=== PATIENT | female | born 1955 | race Caucasian/White ===

== ENCOUNTER 2019-02-07 21:42 | Inpatient (IN) | payer MEDICAID ==
[~2019-02-07] VITALS: Ht 157.5 cm; Wt 88.1 kg
[~2019-02-07 21:42] MED LIST: AMLO5TAB4 PO; ATOR20TA PO; BENA40TA9 PO; CARV25TA47 PO; OMEP20TA2 PO
[2019-02-07] MEDS ORDERED: MAGNESIUM/ALUMINUM HYDROXIDE/SIMETHICONE 30ML UDC PO STA (22:41)
[2019-02-07] MEDS ORDERED: ONDANSETRON HCL 4MG/2ML INJ IV STA (22:41)
[2019-02-07 23:42] LABS: BASOPHILS % 0.9 % (0.0-2.0); EOSINOPHILS % 2.6 % (0.0-5.0); HEMATOCRIT. 35.6 % (36.0-48.0); HEMOGLOBIN. 12.3 g/dL (12.0-16.0); LYMPHOCYTES % 24.8 % (20.0-50.0); MEAN CORPUSCULAR HEMOGLOBIN 27.9 pg (28.0-32.0); MEAN CORPUSCULAR VOLUME 80.7 fL (81.0-99.0); MEAN PLATELET VOLUME 7.4 fl (7.4-10.4); MONOCYTES % 4.1 % (2.0-8.0); NEUTROPHILS % 67.6 % (40.0-76.0); PLATELET 344 x1000/uL (130-400); RED BLOOD CELL COUNT 4.41 mill/uL (4.2-5.4); RED CELL DISTRIBUTION WIDTH 14.1 % (11.6-14.6)
[2019-02-07 23:50] LABS: CHLORIDE 95 mEq/L (98-107)
[2019-02-08] MEDS ORDERED: IOHEXOL-300 100 ML BOTTLE ONE (03:23)
[2019-02-08 05:28] LABS: CLARITY URINE CLEAR (CLEAR); KETONES URINE NEGATIVE (NEGATIVE); LEUKOCYTE ESTERASE URINE NEGATIVE (NEGATIVE); NITRITE URINE NEGATIVE (NEGATIVE); OCCULT BLOOD URINE NEGATIVE (NEGATIVE); PH URINE 6.5 (4.5-8.0); PROTEIN URINE NEGATIVE (NEGATIVE); SPECIFIC GRAVITY URINE 1.003 (1.005-1.030); UROBILINOGEN URINE 0.2 E.U./dL (0.2-1.0)
[2019-02-08 05:29] LABS: COLOR URINE STRAW (YELLOW)
[2019-02-08 06:11] VITALS: BP 145/82
[2019-02-08] MEDS ORDERED: COR25 MT (07:04)
[2019-02-08] MEDS ORDERED: AMLO10TA80 PO (07:04)
[2019-02-08] MEDS ORDERED: OMEP40CA34 MT (07:04)
[2019-02-08] MEDS ORDERED: BENA40TA9 MT (07:04)
[2019-02-08] MEDS: OMEPRAZOLE 20MG CAPSULE EXTENDED RELEASE PO SCH ×2 (07:20→10:31)
[2019-02-08 08:00] VITALS: BP_SYST 128; BP_DIAS 77; BP_DIAS 79
[2019-02-08] MEDS ORDERED: MEDICATION NOT ON FORMULARY EA (Benazepril Hcl 40 MG) PO SCH (09:00)
[2019-02-08] MEDS ORDERED: MEDICATION NOT ON FORMULARY EA (Carvedilol 25 MG) PO SCH (09:00)
[2019-02-08] MEDS: CARVEDILOL 12.5MG TABLET PO SCH ×3 (09:00→21:55)
[2019-02-08] MEDS: AMLODIPINE 10MG TABLET PO SCH ×2 (09:00→10:31)
[2019-02-08] MEDS: BENAZEPRIL 10MG TABLET PO SCH ×2 (09:00→10:29)
[2019-02-08] MEDS ORDERED: PNEUMOCOCCAL 23-VAL P-SAC VAC 0.5 ML IM ONE (09:00)
[2019-02-08] MEDS ORDERED: MEDICATION NOT ON FORMULARY EA (Omeprazole 1 CAP) MT SCH (09:00)
[2019-02-08] MEDS ORDERED: MORPHINE SULFATE 2 MG/ML CPJ (NOT FOR IM USE) IV PRN (10:00)
[2019-02-08 12:00] VITALS: BP 107/73
[2019-02-08] MEDS ORDERED: MORPHINE SULFATE 2 MG/ML CPJ (NOT FOR IM USE) IV NR (12:30)
[2019-02-08] MEDS ORDERED: ONDANSETRON HCL 4MG/2ML INJ IV PRN (12:30)
[2019-02-08 14:35] LABS: *AMPHETAMINES SCREEN URINE NEGATIVE (NEGATIVE); *BARBITURATES SCREEN URINE NEGATIVE (NEGATIVE); *BENZODIAZEPINES SCREEN URINE NEGATIVE (NEGATIVE); *COCAINE SCREEN URINE NEGATIVE (NEGATIVE)
[2019-02-08 14:36] LABS: CANNABINOID URINE SCREEN NEGATIVE (NEGATIVE); METHADONE URINE SCREEN NEGATIVE (NEGATIVE); OPIATES URINE SCREEN NEGATIVE (NEGATIVE); PHENCYCLIDINE URINE SCREEN NEGATIVE (NEGATIVE)
[2019-02-08 16:00] VITALS: BP 116/76
[2019-02-08 20:00] VITALS: BP 121/67
[2019-02-09] VITALS: BP 114/64
[2019-02-09 04:00] VITALS: BP 122/71
[2019-02-09] MEDS: OMEPRAZOLE 20MG CAPSULE EXTENDED RELEASE PO SCH (06:35)
[2019-02-09 07:03] LABS: CHLORIDE 103 mEq/L (98-107)
[2019-02-09 07:25] LABS: BASOPHILS % 0.7 % (0.0-2.0); EOSINOPHILS % 3.2 % (0.0-5.0); HEMATOCRIT. 34.4 % (36.0-48.0); HEMOGLOBIN. 11.5 g/dL (12.0-16.0); LYMPHOCYTES % 27.8 % (20.0-50.0); MEAN CORPUSCULAR HEMOGLOBIN 27.7 pg (28.0-32.0); MEAN CORPUSCULAR VOLUME 82.7 fL (81.0-99.0); MEAN PLATELET VOLUME 8.1 fl (7.4-10.4); MONOCYTES % 5.9 % (2.0-8.0); NEUTROPHILS % 62.4 % (40.0-76.0); PLATELET 332 x1000/uL (130-400); RED BLOOD CELL COUNT 4.15 mill/uL (4.2-5.4); RED CELL DISTRIBUTION WIDTH 14.3 % (11.6-14.6)
[2019-02-09 08:00] VITALS: BP 115/65
[2019-02-09] MEDS: AMLODIPINE 10MG TABLET PO SCH (08:46)
[2019-02-09] MEDS: CARVEDILOL 12.5MG TABLET PO SCH (08:48)
[2019-02-09 12:00] VITALS: BP 127/69
[2019-02-09 14:18] VITALS: BP 127/69
== END 2019-02-09 16:00 | disposition home or self-care (01) | DRG 254 ==
LOC: ER 21:47 → 6WST 02-08 02:30 → EDBEDREQ 02-08 02:34 → EDBEDREQTM 02-08 02:34 → ENRESERV 02-08 02:42
PROVIDERS: ADMIT Internal Medicine; ATTEND Internal Medicine
DX: K44.9 Diaphragmatic hernia without obstruction or gangrene (principal); E87.1 Hypo-osmolality and hyponatremia; E87.8 Other disorders of electrolyte and fluid balance, not elsewhere classified; K21.9 Gastro-esophageal reflux disease without esophagitis; E66.9 Obesity, unspecified; E78.00 Pure hypercholesterolemia, unspecified; I10 Essential (primary) hypertension; J45.909 Unspecified asthma, uncomplicated; K57.30 Diverticulosis of large intestine without perforation or abscess without bleeding; Z90.49 Acquired absence of other specified parts of digestive tract; Z71.3 Dietary counseling and surveillance; Z68.35 Body mass index [BMI] 35.0-35.9, adult
CPT/HCPCS: 36415; 71045; 74177; 74181; 76700; 80048; 80305; 81003; 84484; 90732; 93005; 93306; 96374; 96375; 99285; J2270; J2405; Q9967

== ENCOUNTER 2023-09-06 11:13 | Inpatient (IN) | payer OTHER, MEDICAID ==
[~2023-09-06] VITALS: Ht 162.6 cm; Wt 87.2 kg
[~2023-09-06 11:13] MED LIST changes: +AMLO10TA80 PO; -AMLO5TAB4 PO; -ATOR20TA PO; -BENA40TA9 PO; +BENA40TA91 PO; -OMEP20TA2 PO; +OMEP40CA20 MT
[2023-09-06 13:04] LABS: BASOPHILS % 0.6 % (0.0-2.0); EOSINOPHILS % 1.9 % (0.0-5.0); HEMATOCRIT. 36.3 % (36.0-48.0); HEMOGLOBIN. 12.7 g/dL (12.0-16.0); LYMPHOCYTES % 22.4 % (20.0-50.0); MEAN CORPUSCULAR HEMOGLOBIN 29.9 pg (28.0-32.0); MEAN CORPUSCULAR HGB CONC 35.1 g/dL (31.0-37.0); MEAN CORPUSCULAR VOLUME 85.3 fL (81.0-99.0); MEAN PLATELET VOLUME 7.2 fl (7.4-10.4); MONOCYTES % 7.2 % (2.0-8.0); NEUTROPHILS % 67.9 % (40.0-76.0); PLATELET 340 x1000/uL (130-400); RED BLOOD CELL COUNT 4.25 mill/uL (4.2-5.4); RED CELL DISTRIBUTION WIDTH 13.6 % (11.6-14.6); WHITE BLOOD COUNT 7.4 x1000/uL (4.5-11.0)
[2023-09-06 13:05] LABS: ALANINE AMINOTRANSFERASE 64 IU/L (10-49); ALBUMIN 4.5 g/dL (3.2-4.8); ASPARTATE AMINOTRANSFERASE 38 IU/L (<34); BILIRUBIN TOTAL 0.6 mg/dL (0.1-1.0); CALCIUM 8.9 mg/dL (8.7-10.4); CARBON DIOXIDE 27 mEq/L (21-32); CHLORIDE 93 mEq/L (98-107); CREATININE 0.6 mg/dL (0.6-1.0); GLUCOSE 131 mg/dL (70-105); POTASSIUM 3.5 mEq/L (3.5-5.1); PROTEIN TOTAL 6.7 g/dL (6.0-8.3); SODIUM 126 mEq/L (136-145); TROPONIN I HIGH SENSITIVITY 5 ng/L (3.0-34); UREA NITROGEN BLOOD 5 mg/dL (9-23)
[2023-09-06] MEDS: HYDRALAZINE 20MG/ML VIAL IV ONE (13:38)
[2023-09-06] MEDS: SODIUM CHLORIDE 0.9% 1,000 ML IV ONE (13:38)
[2023-09-06] MEDS ORDERED: ACETAMINOPHEN 325MG TABLET PO PRN (16:45)
[2023-09-06] MEDS ORDERED: AMLODIPINE 10MG TABLET PO SCH (16:45)
[2023-09-06] MEDS ORDERED: DOCUSATE SODIUM 100MG CAPSULE PO PRN (16:45)
[2023-09-06] MEDS ORDERED: CLONIDINE 0.1MG TABLET PO PRN (16:45)
[2023-09-06] MEDS ORDERED: ONDANSETRON HCL 4MG/2ML INJ IV PRN (16:45)
[2023-09-06] MEDS ORDERED: IPRATROPIUM/ALBUTEROL 0.5-3(2.5)MG/3ML NEB HHN PRN (16:45)
[2023-09-06] MEDS: LOSARTAN 50 MG TABLET PO SCH (19:53)
[2023-09-06] MEDS: ASPIRIN 81MG EC TABLET PO NR (19:54)
[2023-09-06] MEDS: AMLODIPINE 5MG TABLET PO SCH (19:54)
[2023-09-06 20:00] VITALS: BP 165/91; PULSE 85; RESP 24; TEMP 97.8
[2023-09-06 21:13] VITALS: BP 156/79; PULSE 74; RESP 14; TEMP 97.8
[2023-09-06] MEDS: ATORVASTATIN CALCIUM 20MG TABLET PO SCH (21:27)
[2023-09-06] MEDS: ENOXAPARIN 30MG/0.3ML SYR SUBCUT SCH (21:28)
[2023-09-06 23:04] LABS: HEPATITIS B SURFACE ANTIGEN NEGATIVE (Negative); HEPATITIS C AB NON REACTIVE (Neg) (Negative)
[2023-09-07] VITALS: BP 121/70; PULSE 77; RESP 14; TEMP 97.5
[2023-09-07 00:12] LABS: CREATINE KINASE MB FRACTION 0.6 ng/mL (0.5-3.6)
[2023-09-07] MEDS: ZOLPIDEM TARTRATE 5MG TABLET PO PRN (00:39)
[2023-09-07 04:00] VITALS: BP 130/80; PULSE 70; RESP 15; TEMP 97.6
[2023-09-07 05:30] LABS: SODIUM URINE RANDOM 122 mEq/L
[2023-09-07 05:38] LABS: *AMPHETAMINES SCREEN URINE NEGATIVE (NEGATIVE); *BARBITURATES SCREEN URINE NEGATIVE (NEGATIVE); *BENZODIAZEPINES SCREEN URINE NEGATIVE (NEGATIVE); *COCAINE SCREEN URINE NEGATIVE (NEGATIVE); CANNABINOID URINE SCREEN NEGATIVE (NEGATIVE); ECSTASY MDMA SCREEN URINE NEGATIVE (NEGATIVE); METHADONE URINE SCREEN Neg (NEGATIVE); OPIATES URINE SCREEN NEGATIVE (NEGATIVE); PHENCYCLIDINE URINE SCREEN NEGATIVE (NEGATIVE)
[2023-09-07 06:12] LABS: CREATINE KINASE 43 IU/L (34-145); CREATINE KINASE MB FRACTION < 0.5 ng/mL (0.5-3.6); TROPONIN I HIGH SENSITIVITY 7 ng/L (3.0-34)
[2023-09-07 08:00] VITALS: BP 109/83; PULSE 84; RESP 17; TEMP 98.1
[2023-09-07] MEDS ORDERED: SODIUM CHLORIDE 0.9% 1,000 ML IV SCH (08:00)
[2023-09-07 08:18] LABS: ALANINE AMINOTRANSFERASE 66 IU/L (10-49); ALBUMIN 4.4 g/dL (3.2-4.8); ASPARTATE AMINOTRANSFERASE 39 IU/L (<34); BILIRUBIN TOTAL 0.5 mg/dL (0.1-1.0); CALCIUM 9.2 mg/dL (8.7-10.4); CARBON DIOXIDE 22 mEq/L (21-32); CHLORIDE 101 mEq/L (98-107); CREATININE 0.6 mg/dL (0.6-1.0); GLUCOSE 109 mg/dL (70-105); POTASSIUM 3.2 mEq/L (3.5-5.1); PROTEIN TOTAL 7.1 g/dL (6.0-8.3); UREA NITROGEN BLOOD 6 mg/dL (9-23)
[2023-09-07 08:23] LABS: SODIUM 134 mEq/L (136-145)
[2023-09-07 08:25] LABS: BASOPHILS % 1.2 % (0.0-2.0); EOSINOPHILS % 3.1 % (0.0-5.0); HEMATOCRIT. 37.6 % (36.0-48.0); LYMPHOCYTES % 32.2 % (20.0-50.0); MEAN CORPUSCULAR HEMOGLOBIN 29.9 pg (28.0-32.0); MEAN CORPUSCULAR HGB CONC 34.6 g/dL (31.0-37.0); MEAN CORPUSCULAR VOLUME 86.6 fL (81.0-99.0); MEAN PLATELET VOLUME 7.7 fl (7.4-10.4); MONOCYTES % 8.7 % (2.0-8.0); NEUTROPHILS % 54.8 % (40.0-76.0); PLATELET 345 x1000/uL (130-400); RED BLOOD CELL COUNT 4.35 mill/uL (4.2-5.4); RED CELL DISTRIBUTION WIDTH 13.9 % (11.6-14.6); WHITE BLOOD COUNT 6.8 x1000/uL (4.5-11.0)
[2023-09-07 08:48] LABS: OSMOLALITY URINE 338 mOsm/kg (500-850)
[2023-09-07 10:40] VITALS: BP 109/83; PULSE 84; TEMP 98.1; O2SAT 100
[2023-09-07] MEDS: POTASSIUM CHLORIDE 20MEQ TABLET SR PO SCH (11:13)
== END 2023-09-07 11:25 | disposition home or self-care (01) | DRG 305 ==
LOC: ER 13:43 → 3WST 15:02 → EDBEDREQTM 15:17 → EDBEDREQ 15:17
PROVIDERS: ADMIT Internal Medicine; ATTEND Internal Medicine
DX: I16.0 Hypertensive urgency (principal); E87.1 Hypo-osmolality and hyponatremia; I10 Essential (primary) hypertension; J45.909 Unspecified asthma, uncomplicated
CPT/HCPCS: 36415; 71045; 80053; 80305; 82550; 82553; 83880; 83930; 83935; 84300; 84443; 84484; 85025; 86705; 87340; 93005; 99285; J0360; J1650; J7030